=== PATIENT | female | born 1985 | race African-American/Black ===

== ENCOUNTER 2018-12-02 00:23 | Emergency (ER) | payer MEDICAID ==
[~2018-12-02] VITALS: Ht 172.7 cm; Wt 63.5 kg
[2018-12-02 00:30] VITALS: BP 131/91
== END 2018-12-02 03:21 | disposition left against medical advice (07) ==
LOC: ER 00:23 → EDBD 00:23 → EDUNIT# 00:23 → ER 03:21
DX: F12.10 Cannabis abuse, uncomplicated (principal); Z53.21 Procedure and treatment not carried out due to patient leaving prior to being seen by health care provider